=== PATIENT | female | born 1965 | race Caucasian/White ===

== ENCOUNTER → 2016-09-16 | Outpatient (REF) | payer OTHER ==
[~2016-09-16] MED LIST: BUPR300T34 PO; IBUPOTC PO; KEFL500C7 PO; MULTCAP PO; NORC5TAB PO
[2016-09-16 18:34] LABS: CONTROL LINE HCG INT CTR LINE PRESENT
== END ==
LOC: M LAB REF 16:40
PROVIDERS: ATTEND Nurse Practitioner Family
DX: Z01.812 Encounter for preprocedural laboratory examination (principal); B18.2 Chronic viral hepatitis C; B18.8 Other chronic viral hepatitis

== ENCOUNTER → 2018-01-19 | Outpatient (CLI) | payer OTHER | LOC: M RAD 10:27 | DX: C50.911 Malignant neoplasm of unspecified site of right female breast (principal) | CPT/HCPCS: 78306 ==

== ENCOUNTER → 2018-03-29 | Outpatient (CLI) | payer OTHER | LOC: M ONCR 09:06 | DX: C50.911 Malignant neoplasm of unspecified site of right female breast (principal) | CPT/HCPCS: G0463 ==

== ENCOUNTER 2018-04-06 10:05 | Outpatient (RCR) | payer OTHER | END 2018-05-06 | LOC: M ONCR 10:05 | DX: C50.811 Malignant neoplasm of overlapping sites of right female breast (principal) | CPT/HCPCS: 77300 ==

== ENCOUNTER 2018-05-11 12:01 | Outpatient (RCR) | payer OTHER | END 2018-06-05 | LOC: M ONCR 12:01 | DX: C50.811 Malignant neoplasm of overlapping sites of right female breast (principal) | CPT/HCPCS: 77336 ==

== ENCOUNTER 2018-06-06 11:50 | Outpatient (RCR) | payer OTHER | END 2018-07-06 | LOC: M ONCR 06-07 11:45 | DX: C50.811 Malignant neoplasm of overlapping sites of right female breast (principal) | CPT/HCPCS: 77336 ==

== ENCOUNTER → 2018-07-13 | Outpatient (CLI) | payer OTHER | LOC: M ONCR 12:47 | DX: C50.811 Malignant neoplasm of overlapping sites of right female breast (principal) ==

== ENCOUNTER → 2018-08-09 | Outpatient (CLI) | payer OTHER | LOC: M WUC 12:08 | DX: M79.644 Pain in right finger(s) (principal); W54.0XXA Bitten by dog, initial encounter | CPT/HCPCS: 73130 ==

== ENCOUNTER → 2018-12-14 | Outpatient (CLI) | payer OTHER ==
[~2018-12-14] MED LIST changes: +KEFL500C17 PO; -KEFL500C7 PO; +NORC1TAB7 PO; -NORC5TAB PO; +SILV40CR EXT
--- NOTE | 2018-12-14 14:29 | RADONC ---
RADIATION ONCOLOGY FOLLOWUP NOTE: DATE: 12/14/2018 CHART NUMBER: [id number] DIAGNOSIS: Right breast cancer. STAGE: II A, M4pP5pT6, recurrent. ECOG PERFORMANCE STATUS: 0 Ms. 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 The patient presents today reporting that she is doing quite well with no complaints at this time related to her radiation therapy or disease. She has no chest wall or bone pain. REVIEW OF SYSTEMS: The patient's review of systems is noncontributory. She denies nausea, vomiting, fevers, chills, night sweats, diplopia, headaches, anxiety or depression, anorexia, weight loss, visual disturbances, chest pain, urinary or bowel difficulties, bone pain, or neurological problems. PHYSICAL EXAMINATION: The patient is a well-developed, well-nourished female in no acute distress. HEENT exam is normocephalic, atraumatic. Extraocular movements are intact. There is no palpable cervical, supraclavicular, infraclavicular, axillary, or inguinal lymphadenopathy present. Lungs are clear to auscultation and percussion. Heart has a regular rate and rhythm. Abdomen is benign with no hepatosplenomegaly, masses, or tenderness. Chest wall examination reveals well-healed surgical scars present with reconstruction in place. There is no evidence of nodularity, residual or recurrent disease. Skeletal examination reveals no tenderness to pressure or percussion of the bony skeleton. Extremities reveal no clubbing, cyanosis, or edema. Neurologic exam is grossly intact, as is the remainder of the physical examination. ASSESSMENT: The patient is clinically SUHAIL at this time and is being followed closely by her medication oncologist, Dr. Lopez. In light of this, I am discharging this patient except on a as needed basis. cc: MD Esau Dempsey MD Michael Kuettell, MD
== END ==
LOC: M ONCR 11:14
PROVIDERS: ATTEND Radiology Radiation Oncology
DX: C50.811 Malignant neoplasm of overlapping sites of right female breast (principal)